=== PATIENT | male | born 1975 | race Native Hawaiian/Other Pacific Islander ===

== ENCOUNTER 2016-05-29 02:37 | Emergency (ER) | payer SELFPAY ==
[~2016-05-29] VITALS: Ht 182.9 cm; Wt 108.9 kg
[~2016-05-29 02:37] MED LIST: AC325T PO; AC500T; AMOX500C2 PO; CLAR-19 PO; CPR500T PO; CYCL10TA9 PO; HYDR-1231 PO; HYDR1CAP2 PO; IBP800T PO; METH4TAB PO
[2016-05-29] MEDS ORDERED: RT-ALBUTEROL/IPRATROPIUM 3 ML (DUONEB) VIAL ONE (02:43)
[2016-05-29] MEDS ORDERED: RT-ALBUTEROL SULF 2.5 MG/3 ML PRE-MIX VIAL INH STA (02:43)
[2016-05-29] MEDS ORDERED: RT-ALBUTEROL SULF 2.5 MG/3 ML PRE-MIX VIAL ONE (02:43)
[2016-05-29] MEDS ORDERED: RT-ALBUTEROL/IPRATROPIUM 3 ML (DUONEB) VIAL INH ONE (02:45)
[2016-05-29] MEDS ORDERED: predniSONE 20 MG TAB PO ONE (02:45)
[2016-05-29] MEDS ORDERED: RX-ALBUTEROL INHALER (PROAIR) 8 GM IH PRN (02:45)
[2016-05-29] MEDS ORDERED: PRD20T PO (03:01)
--- NOTE | 2016-05-29 03:02 | ED Respiratory ---
General Chief Complaint: Respiratory Problems Stated Complaint: SOA Nursing Triage Note: Pt reports SOA and nasal congestion that began yesterday, getting worse this evening. Source: patient Exam Limitations: no limitations History of Present Illness Time seen by provider: 02:41 Initial Comments Here with report of shortness of breath and nasal congestion. Shortness of breath began yesterday morning and got worse this evening and overnight. Noted that the nasal congestion is been going on for a few days. Noted that he felt short of breath and was wheezing tonight and it did not improve. Denies fever or chills. Denies vomiting or diarrhea. Denies chest pain otherwise. Timing/Duration: yesterday, getting worse Severity: moderate Prior Episodes/Possible Cause: no prior episodes Modifying Factors: Improves With Rest Associated Symptoms: cough nasal congestion nasal drainage shortness of breath wheezing Allergies and Home Medications Allergies Coded Allergies: No Known Drug Allergies (Unverified , 03/08/10) Home Medications Acetaminophen 325 Mg Tab 325 MG PO PRN (Reported) Cyclobenzaprine Hcl 10 Mg Tablet #14 1 EACH PO TID PRN PRN SPASMS Prescribed by: SIMEON GIBBONS on 11/17/132057 Hydrocodone Bit/Acetaminophen 1 Tab Tablet #15 1-2 TAB PO Q6H PRN PRN PAIN Prescribed by: SIMEON GIBBONS on 11/17/132057 Methylprednisolone 4 Mg/Dose-Pack Tab.ds.pk #1 1 PKT PO UD Prescribed by: SIMEON GIBBONS on 11/17/132057 Prednisone 20 Mg Tab #10 40 MG PO DAILY Prescribed by: SARTHAK NICOLE on 05/29/16 0301 Constitutional: see HPINo chills, No fever EENTM: see HPI Respiratory: see HPI cough short of breath wheezing Cardiovascular: no symptoms reported Gastrointestinal: no symptoms reported Musculoskeletal: no symptoms reported Skin: no symptoms reported Past Yfwxneg-Jwqayj-Andrhp Hx Patient Social History Alcohol Use: Denies Use Recreational Drug Use: No Smoking Status: Current Everyday Smoker Type Used: Smokeless Tobacco 2nd Hand Smoke Exposure: No Recent Foreign Travel: No Contact w/Someone Who Travel: No Recent Infectious Disease Expo: No Recent Hopitalizations: No Immunizations Up To Date Tetanus Booster (TDap): Unknown Seasonal Allergies Seasonal Allergies: No Surgeries HX Surgeries: No Respiratory Hx Respiratory Disorders: No Cardiovascular Hx Cardiac Disorders: No Neurological Hx Neurological Disorders: No Genitourinary Hx Genitourinary Disorders: No Gastrointestinal Hx Gastrointestinal Disorders: No Musculoskeletal Hx Musculoskeletal Disorders: No Endocrine Hx Endocrine Disorders: No HEENT HX ENT Disorders: No Cancer Hx Cancer: No Psychosocial Hx Psychiatric Problems: No Integumentary HX Skin/Integumentary Disorder: No Blood Transfusions Hx Blood Disorders: No Reviewed Nursing Assessment Reviewed/Agree w Nursing PMH: Yes Family Medical History Significant Family History: No Pertinent Family Hx Physical Exam Vital Signs Vital Sign - Last 12Hours 05/29/16 02:38 Temp 97.9 Pulse 70 Resp 18 B/P 147/79 Pulse Ox 97 O2 Delivery Room Air Capillary Refill : Less Than 3 Seconds General Appearance: WD/WN no apparent distress HEENT: TMs normal other (moderate bilateral nasal congestion with clear rhinorrhea and moderate erythema) Neck: full range of motion supple Respiratory: lungs clear normal breath sounds Cardiovascular: regular rate, rhythm no murmur Gastrointestinal: non tender soft Extremities: non-tender normal inspection Neurologic/Psychiatric: alert oriented x 3 Skin: normal color warm/dry Progress/Results/Core Measures Results/Orders My Orders Orders-SARTHAK NICOLE MD Albuterol Pre-Mix Nebs (Rt) (Proventil P (05/29/16 02:43) Albuterol/Ipra Inhalation Soln (Duoneb I (05/29/16 02:45) Svn Sm Volume Nebulizer Rt-Rfs (05/29/16 02:43) Svn Sm Volume Nebulizer Rt-Rfs (05/29/16 02:43) Rx-Albuterol Inhaler (Rx-Proair) (05/29/16 02:45) Prednisone Tablet (Deltasone Tablet) (05/29/16 02:45) Albuterol Pre-Mix Nebs (Rt) (Proventil P (05/29/16 02:43) Albuterol/Ipra Inhalation Soln (Duoneb I (05/29/16 02:43) Medications Given in ED Current Medications Medications Dose Ordered Sig/Marky Route Start Time Stop Time Status Last Admin Dose Admin Albuterol/ Ipratropium 3 ml ONCE ONCE INH 05/29/16 02:45 05/29/16 02:46 DC 05/29/16 02:48 3 ML Prednisone 40 mg ONCE ONCE PO 05/29/16 02:45 05/29/16 02:46 DC 05/29/16 02:52 40 MG Vital Signs/I&O Vital Sign - Last 12Hours 05/29/16 05/29/16 05/29/16 02:38 02:46 02:48 Temp 97.9 Pulse 70 Resp 18 B/P 147/79 Pulse Ox 97 96 98 O2 Delivery Room Air Blood Pressure Mean: 101 Progress Note : Progress Note Seen and evaluated. His DuoNeb ordered. Albuterol neb ordered. Albuterol MDI go pack given. Prednisone 40 mg by mouth. Discharged home with return precautions. Patient verbalize understanding instructions and agreement with plan. 0310: Overall much better. Discharged home with return precautions. Patient verbalize understanding instructions and agreement with plan. Departure Impression Impression: Primary Impression: Acute bronchitis Qualified Code: J20.9 - Acute bronchitis, unspecified Disposition: HOME, SELF-CARE Condition: Stable Departure-Patient Inst. Decision time for Depature: 03:00 Referrals: [facility] (PCP/Family) Primary Care Physician Patient Instructions: Acute Bronchitis, Adult (DC) Add. Discharge Instructions: All discharge instructions reviewed with patient and/or family. Voiced understanding. Take medications as directed. Follow-up with your Dr. in a few days for recheck. Return for worse pain, fever, vomiting, weakness, breathing problems or other concerns as needed. He may take Tylenol 1000 mg every 8 hours as needed for pain. You may take ibuprofen 800 mg every 8 hours as needed for pain. You may use Afrin nasal spray or the generic, 12 hour relief, 2 sprays to each nostril for 3 days only and then stop. Do not use more than 3 days. Scripts Prednisone 20 Mg Tab40 Mg PO DAILY #10 TAB Prov:SARTHAK NICOLE MD 05/29/16 SARTHAK NICOLE MD May 29, 2016 03:02
[2016-05-29 03:19] VITALS: BP 140/68
== END 2016-05-29 03:19 | disposition home or self-care (01) ==
LOC: EDUNIT# 02:37 → ER 02:40
DX: J20.9 Acute bronchitis, unspecified (principal); F17.210 Nicotine dependence, cigarettes, uncomplicated
CPT/HCPCS: 94640; 99283

== ENCOUNTER 2016-06-21 07:46 | Emergency (ER) | payer SELFPAY ==
[~2016-06-21] VITALS: Ht 182.9 cm; Wt 106.6 kg
[~2016-06-21 07:46] MED LIST changes: +PRD20T PO
[2016-06-21] MEDS ORDERED: ASPIRIN 81 MG CHEW (CHILDREN'S ASA) PO ONE (08:00)
[2016-06-21] MEDS ORDERED: RX-NITROGLYCERIN 0.4 MG TAB BTL 25'S SL ONE (08:00)
[2016-06-21 08:02] LABS: BASOPHILS # (AUTO) 0.1 10^3/uL (0.0-0.1); BASOPHILS % (AUTO) 1 % (0-10); EOSINOPHILS # (AUTO) 0.6 10^3/uL (0.0-0.3); EOSINOPHILS % (AUTO) 6 % (0-10); LYMPHOCYTES # (AUTO) 2.8 X 10^3 (1.0-4.0); LYMPHOCYTES % (AUTO) 26 % (12-44); MEAN CORPUSCULAR HEMOGLOBIN 30 PG (25-34); MEAN CORPUSCULAR HGB CONC 37 G/DL (32-36); MEAN CORPUSCULAR VOLUME 82 FL (80-99); MEAN PLATELET VOLUME 10.3 FL (7.4-10.4); MONOCYTES # (AUTO) 0.7 X 10^3 (0.0-1.0); MONOCYTES % (AUTO) 6 % (0-12); NEUTROPHILS # (AUTO) 6.5 X 10^3 (1.8-7.8); NEUTROPHILS % (AUTO) 61 % (42-75); PLATELET COUNT 303 10^3/uL (130-400); RED BLOOD COUNT 5.75 10^6/uL (4.35-5.85); RED CELL DISTRIBUTION WIDTH 12.8 % (10.0-14.5); WHITE BLOOD COUNT 10.6 10^3/uL (4.3-11.0)
[2016-06-21 08:12] LABS: INR 1.1 (0.8-1.4); PROTHROMBIN TIME PATIENT 14.1 SEC (12.2-14.7)
[2016-06-21] MEDS ORDERED: AMOX500C2 (08:15)
[2016-06-21 08:19] LABS: ALANINE AMINOTRANSFERASE 38 U/L (0-55); ALBUMIN 4.4 G/DL (3.2-4.5); AMYLASE 88 U/L (25-125); ANION GAP 8 MMOL/L (5-14); ASPARTATE AMINO TRANSFERASE 22 U/L (5-34); BILIRUBIN,TOTAL 1.3 MG/DL (0.1-1.0); BLOOD UREA NITROGEN 12 MG/DL (7-18); BUN/CREATININE RATIO 10; CALCIUM 9.4 MG/DL (8.5-10.1); CARBON DIOXIDE 28 MMOL/L (21-32); CHLORIDE 103 MMOL/L (98-107); CREATININE SERUM 1.16 MG/DL (0.60-1.30); GFR ESTIMATED > 60; GLUCOSE 104 MG/DL (70-105); LIPASE 26 U/L (8-78); MAGNESIUM 2.1 MG/DL (1.8-2.4); POTASSIUM 3.5 MMOL/L (3.6-5.0); SODIUM 139 MMOL/L (135-145)
[2016-06-21 08:25] LABS: MYOGLOBIN SERUM 66.8 NG/ML (10.0-92.0)
[2016-06-21] MEDS ORDERED: KETOROLAC 30 MG/ML VIAL IVP STA (08:32)
--- NOTE | 2016-06-21 08:37 | Diagnostic Imaging Report ---
Portable upright radiograph of the chest. INDICATION: Chest pain. FINDINGS: The lungs demonstrate mild interstitial thickening in the bases similar to 11/19/2012 with no adverse development. No focal consolidation. The heart size is normal. No effusion or pneumothorax. The mediastinum and luis appear unremarkable. IMPRESSION: No acute process. Dictated by: Dictated on workstation # [id number]
[2016-06-21 08:40] VITALS: BP 109/77
--- NOTE | 2016-06-21 08:40 | ED Chest Pain ---
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 Reports that it's aching. Denies any recent injury. He has never had anything like this before. Denies nausea, vomiting or diaphoresis. Timing/Duration: 1/2 hour Severity/Quality: moderate Location: shoulder, other (left upper chest) Radiation: shoulders (left) Activities at Onset: none Prior CP/Workup: no prior chest pain ASA po SADDLE MECHANIC: No NTG SL SADDLE MECHANIC: No Associated Symptoms: No abdominal pain, No diaphoresis, No fever/chills, No nausea/vomiting, No shortness of breath, No weakness Allergies and Home Medications Allergies Coded Allergies: No Known Drug Allergies (Unverified , 03/08/10) Home Medications Amoxicillin 500 Mg Capsule, #21 (Reported) Review of Systems Constitutional: see HPI, No chills, No fever EENTM: No Symptoms Reported Respiratory: No Symptoms Reported Cardiovascular: See HPI Gastrointestinal: No Symptoms Reported, See HPI Genitourinary: No Symptoms Reported Musculoskeletal: see HPI, joint pain, muscle pain Skin: no symptoms reported All Other Systems Reviewed Negative Unless Noted: Yes Past Gdqfpmw-Yvkwwo-Tvdqkh Hx Patient Social History Alcohol Use: Denies Use Recreational Drug Use: No Type Used: Smokeless Tobacco 2nd Hand Smoke Exposure: No Recent Foreign Travel: No Contact w/Someone Who Travel: No Recent Infectious Disease Expo: No Recent Hopitalizations: No Immunizations Up To Date Tetanus Booster (TDap): Unknown Seasonal Allergies Seasonal Allergies: No Surgeries HX Surgeries: No Respiratory Hx Respiratory Disorders: No Cardiovascular Hx Cardiac Disorders: No Neurological Hx Neurological Disorders: No Genitourinary Hx Genitourinary Disorders: No Gastrointestinal Hx Gastrointestinal Disorders: No Musculoskeletal Hx Musculoskeletal Disorders: No Endocrine Hx Endocrine Disorders: No HEENT HX ENT Disorders: No Cancer Hx Cancer: No Psychosocial Hx Psychiatric Problems: No Integumentary HX Skin/Integumentary Disorder: No Blood Transfusions Hx Blood Disorders: No Reviewed Nursing Assessment Reviewed/Agree w Nursing PMH: Yes Family Medical History Significant Family History: No Pertinent Family Hx Physical Exam Vital Signs Vital Sign - Last 12Hours 06/21/16 06/21/16 07:46 08:17 Temp 97.8 Pulse 64 Resp 18 B/P (MAP) 124/71 Pulse Ox 95 O2 Delivery Room Air O2 Flow Rate 2.00 Capillary Refill : Less Than 3 Seconds General Appearance: No Apparent Distress, WD/WN HEENT: PERRL/EOMI, Pharynx Normal Neck: Non Tender, Supple Respiratory: Lungs Clear, Normal Breath Sounds Cardiovascular: Regular Rate, Rhythm, No Murmur Gastrointestinal: Non Tender, Soft Extremity: Normal Range of Motion, Non Tender, No Calf Tenderness Neurologic/Psychiatric: Alert, Oriented x3 Skin: Normal Color, Warm/Dry Progress/Results/Core Measures Results/Orders Lab Results Laboratory Tests Test 06/21/16 07:50 06/21/16 09:58 Range/Units White Blood Count 10.6 4.3-11.0 10^3/uL Red Blood Count 5.75 4.35-5.85 10^6/uL Hemoglobin 17.3 13.3-17.7 G/DL Hematocrit 47 40-54 % Mean Corpuscular Volume 82 80-99 FL Mean Corpuscular Hemoglobin 30 25-34 PG Mean Corpuscular Hemoglobin Concent 37 H 32-36 G/DL Red Cell Distribution Width 12.8 10.0-14.5 % Platelet Count 303 130-400 10^3/uL Mean Platelet Volume 10.3 7.4-10.4 FL Neutrophils (%) (Auto) 61 42-75 % Lymphocytes (%) (Auto) 26 12-44 % Monocytes (%) (Auto) 6 0-12 % Eosinophils (%) (Auto) 6 0-10 % Basophils (%) (Auto) 1 0-10 % Neutrophils # (Auto) 6.5 1.8-7.8 X 10^3 Lymphocytes # (Auto) 2.8 1.0-4.0 X 10^3 Monocytes # (Auto) 0.7 0.0-1.0 X 10^3 Eosinophils # (Auto) 0.6 H 0.0-0.3 10^3/uL Basophils # (Auto) 0.1 0.0-0.1 10^3/uL Prothrombin Time 14.1 12.2-14.7 SEC INR Comment 1.1 0.8-1.4 Activated Partial Thromboplast Time 28 24-35 SEC D-Dimer < 0.27 0.00-0.49 UG/ML Sodium Level 139 135-145 MMOL/L Potassium Level 3.5 L 3.6-5.0 MMOL/L Chloride Level 103 98-107 MMOL/L Carbon Dioxide Level 28 21-32 MMOL/L Anion Gap 8 5-14 MMOL/L Blood Urea Nitrogen 12 7-18 MG/DL Creatinine 1.16 0.60-1.30 MG/DL Estimat Glomerular Filtration Rate > 60 BUN/Creatinine Ratio 10 Glucose Level 104 70-105 MG/DL Calcium Level 9.4 8.5-10.1 MG/DL Magnesium Level 2.1 1.8-2.4 MG/DL Total Bilirubin 1.3 H 0.1-1.0 MG/DL Aspartate Amino Transf (AST/SGOT) 22 5-34 U/L Alanine Aminotransferase (ALT/SGPT) 38 0-55 U/L Alkaline Phosphatase 107 40-136 U/L Myoglobin 66.8 10.0-92.0 NG/ML Troponin I < 0.30 < 0.30 <0.30 NG/ML Total Protein 8.0 6.4-8.2 G/DL Albumin 4.4 3.2-4.5 G/DL Amylase Level 88 25-125 U/L Lipase 26 8-78 U/L My Orders Orders - SARTHAK NICOLE MD Cbc With Automated Diff (06/21/16 07:54) Magnesium (06/21/16 07:54) Chest 1 View, Ap/Pa Only (06/21/16 07:54) Ekg Tracing (06/21/16 07:54) Cardiac Profile 1 (06/21/16 07:54) Comprehensive Metabolic Panel (06/21/16 07:54) Myoglobin Serum (06/21/16 07:54) Protime With Inr (06/21/16 07:54) Partial Thromboplastin Time (06/21/16 07:54) O2 (06/21/16 07:54) Monitor-Rhythm Ecg Trace Only (06/21/16 07:54) Lipid Panel (06/22/16 06:00) Aspirin Chewable Tablet (Baby Aspirin Ch (06/21/16 08:00) Rx-Nitroglycerin Sl Tabs (Rx-Nitrostat S (06/21/16 08:00) Saline Lock/Iv-Start (06/21/16 07:54) Lipase (06/21/16 07:54) Amylase (06/21/16 07:54) Fibrin Degradation Products (06/21/16 07:54) Ketorolac Injection (Toradol Injection) (06/21/16 08:32) Troponin I (06/21/16 09:54) Ekg Tracing (06/21/16 09:54) Medications Given in ED Current Medications Medications Dose Ordered Sig/Marky Route Start Time Stop Time Status Last Admin Dose Admin Aspirin 324 mg ONCE ONCE PO 06/21/16 08:00 06/21/16 08:01 DC 06/21/16 08:00 324 MG Nitroglycerin 0.4 mg UD ONCE SL 06/21/16 08:00 06/21/16 08:01 DC 06/21/16 08:00 0.4 MG Vital Signs/I&O Vital Sign - Last 12Hours 06/21/16 06/21/16 06/21/16 06/21/16 07:46 08:17 08:40 09:37 Temp 97.8 Pulse 64 59 48 Resp 18 18 18 B/P (MAP) 124/71 109/77 122/97 Pulse Ox 95 99 99 O2 Delivery Room Air Nasal Cannula Nasal Cannula Nasal Cannula O2 Flow Rate 2.00 2.00 2.00 Blood Pressure Mean: 88 Progress Note : Progress Note Seen and evaluated. IV, labs, EKG and chest x-ray ordered. ASA 324 mg by mouth. Nitroglycerin sublingual ordered. He was given 1 dose of nitroglycerin and this did resolve pain mostly. Toradol 30 mg IV ordered. 0835: No acute findings on initial set of labs. Toradol 30 mg IV. We will repeat labs and EKG at 2 hour armida. Monitor patient. 1045: Troponin negative. Patient remains pain free. I did discuss the case with Dr. Gonzales. She will assist in follow-up at the clinic for further evaluation and stress test as indicated. This was discussed with the patient as well. Discharged home with return precautions. Patient verbalize understanding instructions and agreement with plan. ECG Initial ECG Impression Date: Jun 21, 2016 Initial ECG Impression Time: 07:52 Initial ECG Rate: 64 Initial ECG Rhythm: Normal Sinus Initial ECG Impression: Normal Initial ECG Comparisson: No Previous ECG Available Comment Sinus rhythm with normal axis. No evidence of ST elevation ND. No previous available for comparison. Interpreted by me. EKG : EKG Time: 09:58 Rate: 49 Rhythm: S.Silas Comment Sinus bradycardia with normal axis. No evidence of ST elevation ND. Similar to previous done earlier today except rate is slower now. Interpreted by me. Diagnostic Imaging Diagonstic Imaging: Xray Plain Films/CT/US/NM/MRI: chest Comments [facility]. [place], [place] NAME: TAMRA FAIRBANKS [facility] REC#: [id number] PT STATUS: REG ER : 1975 PHYSICIAN: SARTHAK NICOLE MD ADMIT DATE: 06/21/16/ER Draft Date of Exam:06/21/16 CHEST 1 VIEW, AP/PA ONLY Portable upright radiograph of the chest. INDICATION: Chest pain. FINDINGS: The lungs demonstrate mild interstitial thickening in the bases similar to 11/19/2012 with no adverse development. No focal consolidation. The heart size is normal. No effusion or pneumothorax. The mediastinum and luis appear unremarkable. IMPRESSION: No acute process. Dictated on workstation # [id number] Dict: 06/21/16 0826 Trans: 06/21/16 0836 [id number] Interpreted by: EKTA BRUNO MD Electronically signed by: Reviewed: Reviewed by Me Departure Impression Impression: Primary Impression: Chest pain Qualified Codes: R07.89 - Other chest pain Disposition: 01 HOME, SELF-CARE Condition: Improved Departure-Patient Inst. Decision time for Depature: 10:48 Referrals: [facility] (PCP/Family) Primary Care Physician Patient Instructions: Chest Pain (DC) Add. Discharge Instructions: All discharge instructions reviewed with patient and/or family. Voiced understanding. follow-up with your DrAmanda at the clinic within one week for recheck and further evaluation. They should call you for appointment time today but if you have not heard from them call them this evening or first thing in the morning for appointment. Let them know the case was discussed with Dr. Gonzales who is assisting with scheduling your appointment. You need further evaluation including a possible cardiac stress test as indicated and you should talk with your doctor about this. Return for worse pain, fever, vomiting, weakness, breathing problems or other concerns as needed. Drink plenty of fluids. Copy Copies To 1: LEE GONZALES MD, TIMOTHY D MD Jun 21, 2016 08:40
[2016-06-21 09:37] VITALS: BP 122/97
--- OUTSIDE RECORDS SUMMARY | 2016-07-16 04:07 | XMS REPORT ---
Author Author HUGO MUSTAFA Organization [facility] Address [address] [place] [address] Care Team Providers Care Gta Name Role Phone HUGO MUSTAFA Unavailable PROBLEMS Type Condition ICD9-CM Code IFB43-GB Code Onset Dates Condition Status SNOMED Code Assessment Cough R05 Nov, Active 73729091 Assessment Abnormal lung sounds R09.89 Nov, Active 88172531312053 Assessment Acute bronchitis, unspecified organism J20.9 Nov, Active [id number] ALLERGIES Substance Reaction Event Type Date Status N.K.D.A. Unknown Non Drug Allergy Nov, Unknown SOCIAL HISTORY No smoking Hx information available PLAN OF CARE VITAL SIGNS Weight 228.4 lbs 2015-12-20 Heart Rate 76 bpm 2015-12-20 Respiratory Rate 20 2015-12-20 Oximetry on room air:94 % 2015-12-20 Blood pressure systolic 122 mmHg 2015-12-20 Blood pressure diastolic 78 mmHg 2015-12-20 MEDICATIONS Medication Instructions Dosage Frequency Start Date End Date Duration Status ProAir HFA 108 (90 Base) MCG/ACT Inhalation every 4 hrs 2 puffs as needed 4h Nov, Active PredniSONE 20 mg Orally Once a day 1 tablet 24h Nov, Dec, 05 days Active Azithromycin 250 MG Orally Once a day 2 tablets on the first day, then 1 tablet daily for 4 days 24h Nov, Dec, 5 day(s) Active RESULTS Name Result Date Reference Range Xray : Chest (IN HOUSE) 2015-12-20 PROCEDURES Procedure Date Ordered Related Diagnosis Body Site CHEST X-RAY Dec 20, 2015 MEASURE BLOOD OXYGEN LEVEL Dec 20, 2015 Office Visit, Est Pt., Level 3 Dec 20, 2015 IMMUNIZATIONS No Known Immunizations
--- OUTSIDE RECORDS SUMMARY | 2016-07-16 04:07 | XMS REPORT | Continuity of Care Document ---
Author Author [facility] Organization [facility] Address Unknown Phone Unavailable Allergies Active Description Code Type Severity Reaction Onset Reported/Identified Relationship to Patient Clinical Status Yes No Known Drug Allergies [id number] Drug Allergy Unknown N/ A 03/08/2010 Medications Problems Date Dx Coded Attending Type Code Diagnosis Diagnosed By 11/19/2012 SARTHAK NICOLE MD, Ot 486 PNEUMONIA, ORGANISM NOS 11/19/2012 SARTHAK NICOLE MD Ot 780.60 FEVER, UNSPECIFIED 07/18/2013 NAVA STEWARD DO Ot 372.30 CONJUNCTIVITIS NOS 07/18/2013 NAVA STEWARD DO Ot 379.93 REDNESS/DISCHARGE OF EYE 11/17/2013 SHAI WISE, SIMEON Garner Ot 724.2 LUMBAGO 06/21/2016 SARTHAK NICOLE MD Ot F17.210 NICOTINE DEPENDENCE, CIGARETTES, UNCOMPL 06/21/2016 SARTHAK NICOLE MD Ot J20.9 ACUTE BRONCHITIS, UNSPECIFIED 06/21/2016 SARTHAK NICOLE MD Ot R06.02 SHORTNESS OF BREATH 06/22/2016 SARTHAK NICOLE MD Ot R07.9 CHEST PAIN, UNSPECIFIED 06/22/2016 SARTHAK NICOLE MD Ot R29.898 OT SYMPTOMS AND SIGNS INVOLVING THE MUS 06/25/2016 SARTHAK NICOLE MD Ot R07.9 CHEST PAIN, UNSPECIFIED 06/25/2016 SARTHAK NICOLE MD Ot R29.898 OT SYMPTOMS AND SIGNS INVOLVING THE MUS Procedures Results Test Result Range Complete blood count (CBC) with automated white blood cell (WBC) differential - 06/21/16 07:50 Blood leukocytes automated count (number/volume) 10.6 10*3/ uL 4.3-11.0 Blood erythrocytes automated count (number/volume) 5.75 10*6 /uL 4.35-5.85 Venous blood hemoglobin measurement (mass/volume) 17.3 g/dL 13.3-17.7 Blood hematocrit (volume fraction) 47 % 40-54 Automated erythrocyte mean corpuscular volume 82 [foz_us] 80-99 Automated erythrocyte mean corpuscular hemoglobin (mass per erythrocyte) 30 pg 25-34 Automated erythrocyte mean corpuscular hemoglobin concentration measurement ( mass/volume) 37 g/dL 32-36 Automated erythrocyte distribution width ratio 12.8 % 10.0-14.5 Automated blood platelet count (count/volume) 303 10*3/uL 130-400 Automated blood platelet mean volume measurement 10.3 [foz_ us] 7.4-10.4 Automated blood neutrophils/100 leukocytes 61 % 42-75 Automated blood lymphocytes/100 leukocytes 26 % 12-44 Blood monocytes/100 leukocytes 6 % 0-12 Automated blood eosinophils/100 leukocytes 6 % 0-10 Automated blood basophils/100 leukocytes 1 % 0-10 Blood neutrophils automated count (number/volume) 6.5 10*3 1.8-7.8 Blood lymphocytes automated count (number/volume) 2.8 10*3 1.0-4.0 Blood monocytes automated count (number/volume) 0.7 10*3 0.0-1.0 Automated eosinophil count 0.6 10*3/uL 0.0-0.3 Automated blood basophil count (count/volume) 0.1 10*3/uL 0.0-0.1 PT panel in platelet poor plasma by coagulation assay - 06/21/16 07:50 Prothrombin time (PT) in platelet poor plasma by coagulation assay 14.1 s 12.2-14.7 INR in platelet poor plasma or blood by coagulation assay 1.1 0.8-1.4 Activated partial thromboplastin time (aPTT) in platelet poor plasma bycoagulation assay - 06/21/16 07:50 Activated partial thromboplastin time (aPTT) in platelet poor plasma bycoagulation assay 28 s 24-35 Fibrin D-dimer FEU measurement in platelet poor plasma (mass/volume) - 07:50 Fibrin D-dimer FEU measurement in platelet poor plasma (mass/volume) < ug/mL 0.00-0.49 Comprehensive metabolic panel - 06/21/16 07:50 Serum or plasma sodium measurement (moles/volume) 139 mmol/ L 135-145 Serum or plasma potassium measurement (moles/volume) 3.5 mmol/L 3.6-5.0 Serum or plasma chloride measurement (moles/volume) 103 mmol /L 98-107 Carbon dioxide 28 mmol/L 21-32 Serum or plasma anion gap determination (moles/volume) 8 mmol/L 5-14 Serum or plasma urea nitrogen measurement (mass/volume) 12 mg/dL 7-18 Serum or plasma creatinine measurement (mass/volume) 1.16 mg /dL 0.60-1.30 Serum or plasma urea nitrogen/creatinine mass ratio 10 NRG Serum or plasma creatinine measurement with calculation of estimated glomerular filtration rate > NRG Serum or plasma glucose measurement (mass/volume) 104 mg/dL 70-105 Serum or plasma calcium measurement (mass/volume) 9.4 mg/dL 8.5-10.1 Serum or plasma total bilirubin measurement (mass/volume) 1.3 mg/dL 0.1-1.0 Serum or plasma alkaline phosphatase measurement (enzymatic activity/volume) 107 U/L 40-136 Serum or plasma aspartate aminotransferase measurement (enzymatic activity/ volume) 22 U/L 5-34 Serum or plasma alanine aminotransferase measurement (enzymatic activity/volume ) 38 U/L 0-55 Serum or plasma protein measurement (mass/volume) 8.0 g/dL 6.4-8.2 Serum or plasma albumin measurement (mass/volume) 4.4 g/dL 3.2-4.5 Magnesium - 06/21/16 07:50 Magnesium 2.1 mg/dL 1.8-2.4 Serum or plasma troponin i.cardiac measurement (mass/volume) - 06/21/16 07:50 Serum or plasma troponin i.cardiac measurement (mass/volume) < ng/mL <0.30 Myoglobin, serum - 06/21/16 07:50 Myoglobin, serum 66.8 ng/mL 10.0-92.0 Serum or plasma amylase measurement (enzymatic activity/volume) - 06/21/16 07: 50 Serum or plasma amylase measurement (enzymatic activity/volume) 88 U/L 25-125 Lipase - 06/21/16 07:50 Lipase 26 U/L 8-78 Serum or plasma troponin i.cardiac measurement (mass/volume) - 06/21/16 09:58 Serum or plasma troponin i.cardiac measurement (mass/volume) < ng/mL <0.30 Encounters ACCT No. Visit Date/Time Discharge Status Pt. Type Provider Facility Loc./Unit Complaint [id number] 06/21/2016 07:49:00 2016 11:02:00 DIS Outpatient SARTHAK NICOLE MD [facility] ER CHEST PAIN/LEFT ARM WEAKNESS [id number] 05/29/2016 02:40:00 2016 03:19:00 DIS Emergency SARTHAK NICOLE MD [facility] ER SOA [id number] 11/17/2013 20:32:00 2013 21:30:00 DIS Emergency SIMEON GIBBONS MD [facility] ER LOWER BACK PAIN [id number] 07/18/2013 20:48:00 2013 21:33:00 DIS Emergency NAVA STEWARD DO [facility] ER EYE IRRITATION [id number] 11/19/2012 15:08:00 2012 18:50:00 DIS Emergency SARTHAK NICOLE MD [facility] ER FEVER
== END 2016-06-21 11:02 | disposition home or self-care (01) ==
LOC: EDUNIT# 07:46 → ER 07:49
DX: R07.9 Chest pain, unspecified (principal); R29.898 Other symptoms and signs involving the musculoskeletal system
CPT/HCPCS: 36415; 71010; 80053; 82150; 83690; 83735; 83874; 84484; 85025; 85379; 85610; 85730; 93005; 93041; 96374

== ENCOUNTER 2021-07-29 17:18 | Emergency (ER) | payer OTHER ==
[~2021-07-29] VITALS: Ht 167 cm; Wt 95.0 kg
[~2021-07-29 17:18] MED LIST changes: +AMOX500C2
--- NOTE | 2021-07-29 18:21 | ED Back Pain ---
General Chief Complaint: Back Problems Stated Complaint: LOWER BACK PAIN Source of Information: Patient Exam Limitations: No Limitations History of Present Illness Date Seen by Provider: July 29, 2021 Time Seen by Provider: 18:20 Initial Comments To ER with c/o low back pain which is a chronic issue but acutely worse today after sneezing while on the couch. no fever or chills, no known injury, no radiation down either leg, no loss of bowel or bladder control. Has been taking tylenol at home for pain control Pain is worsened by position change and improved with massage. Location: Lumbar Spine, Paraspinous Muscles Timing/Duration: 1-2 Days, Getting Worse Severity: Moderate Method of Injury: Unknown Associated Symptoms: lower back pain Allergies and Home Medications Allergies Coded Allergies: No Known Drug Allergies (Unverified , 03/08/10) Patient Home Medication List Home Medication List Reviewed: Yes Amoxicillin (Amoxicillin) 500 Mg Capsule, (Reported) Entered as Reported by: GABRIELA SUAREZ on 06/21/16 0815 Review of Systems Constitutional: see HPI EENTM: see HPI Respiratory: no symptoms reported Cardiovascular: no symptoms reported Genitourinary: no symptoms reported Musculoskeletal: see HPI, back pain Skin: no symptoms reported Psychiatric/Neurological: No Symptoms Reported Past Gjdyulv-Mhapym-Iaalde Hx Patient Social History Tobacco Use?: No Use of E-Cig and/or Vaping dev: No Substance use?: No Immunizations Up To Date Tetanus Booster (TDap): Unknown Influenza Vaccine Up-to-Date: Yes; Up-to-Date First/Initial COVID19 Vaccinat: YES Second COVID19 Vaccination Benton: YES Seasonal Allergies Seasonal Allergies: No Family Medical History No Pertinent Family Hx Physical Exam Vital Signs Capillary Refill : Height, Weight, BMI Height: 6'0" Weight: 235lbs. oz. 106.717870sp; BMI Method:Stated General Appearance: No Apparent Distress, WD/WN Neck: Full Range of Motion, Normal Inspection Respiratory: No Accessory Muscle Use, No Respiratory Distress Gastrointestinal: Non Tender, Soft Back: Other (Right flank wnl appearing. at bedside massaging it. ) Extremity: Normal Capillary Refill, Normal Inspection Neurologic/Psychiatric: Alert, Oriented x3 Skin: Normal Color, Warm/Dry Progress/Results/Core Measures Results/Orders My Orders Orders - VEL HUBER APRN Ketorolac Injection (Toradol Injection) (07/29/21 18:30) Orphenadrine Inj (Ed Only) (Norflex Inje (07/29/21 18:30) Hydrocodone/Apap 5/325 Tablet (Lortab 5 (07/29/21 18:30) Departure Impression Primary Impression: Acute low back pain Disposition: HOME, SELF-CARE Condition: Stable Departure-Patient Inst. Decision time for Depature: 18:30 Referrals: [facility] Primary Care Physician Patient Instructions: Low Back Pain in Adults Add. Discharge Instructions: 1. Return to ER for any concerns 2. follow up with Primary Care next week All discharge instructions reviewed with patient and/or family. Voiced understanding. VEL HUBER [employer] July 29, 2021 18:20
[2021-07-29] MEDS ORDERED: HYDROcodone/APAP 5 MG/325 MG (LORTAB) TAB PO ONE (18:30)
[2021-07-29] MEDS ORDERED: KETOROLAC 60 MG/2 ML VIAL IM ONE (18:30)
[2021-07-29] MEDS ORDERED: ORPHENADRINE 60 MG/2 ML (NORFLEX) AMP (ED ONLY) IM ONE (18:30)
[2021-07-29 19:07] VITALS: BP 110/83
== END 2021-07-29 19:10 | disposition home or self-care (01) ==
LOC: EDUNIT# 17:18 → ER 17:21
DX: M54.50 Low back pain, unspecified (principal); X58.XXXA Exposure to other specified factors, initial encounter
CPT/HCPCS: 99284

== ENCOUNTER 2021-08-03 08:23 | Emergency (ER) | payer OTHER ==
[~2021-08-03] VITALS: Ht 182 cm; Wt 109.0 kg
[2021-08-03] MEDS ORDERED: ORPHENADRINE 60 MG/2 ML (NORFLEX) AMP (ED ONLY) INJ STA (08:50)
[2021-08-03] MEDS ORDERED: methylPREDNISolone 125 MG (Solu-MEDROL) VIAL IV STA (08:50)
--- NOTE | 2021-08-03 09:12 | ED Back Pain ---
General Chief Complaint: Back Problems Stated Complaint: LOWER BACK PAIN Nursing Triage Note: PT AMB SLOWLY TO RM 7, STATES WAS SEEN IN ED LAST WEEK, STATES SNEEZED AND HAD SEVERE BACK PAIN GOES TO R LOWER BACK, PT STATES IS NOT ANY BETTER TODAY, 01/02. Source of Information: Patient History of Present Illness Date Seen by Provider: August 03, 2021 Time Seen by Provider: 08:42 Initial Comments PT ARRIVES VIA POV FROM HOME C/O LOWER BACK PAIN SINCE Sunday07/29/21 PT STATES HE WAS SITTING ON THE COUCH AND SNEEZED AND HAD SEVERE PAIN IN LOWER BACK PAIN IS ALSO IN RIGHT LOWER BACK NO RADIATION OF PAIN INTO BUTTOCKS OR DOWN LEG NO PARESTHESIAS OR MOTOR DEFICITS NO LOSS OF BOWEL OR BLADDER FUNCTION OR ANY URINARY SYMPTOMS NO FEVER NO GI SYMPTOMS ON 07/29/21, HE WAS GIVEN SHOTS OF TORADOL AND NORFLEX, AND PT WAS GIVEN RX'S FOR HYDROCODONE AND METHOCARBAMOL--STATES HE HAS RAN OUT PT WAS SEEN AT [facility] ON Sunday07/31/21 FOR SAME, HAD XRAYS DONE AND GIVEN RX'S FOR FLEXERIL AND MELOXICAM. PT STATES THEY ARE NOT HELPING HAS HISTORY OF CHRONIC BACK PAIN--COMES AND GOES, BUT STATES IT HAS NEVER BEEN THIS BAD BEFORE STATES HE DOES NOT TAKE ANY DAILY MEDICATION FOR HIS BACK, PRIOR TO THIS CURRENT PROBLEM Other Comments PCP: [facility] Allergies and Home Medications Allergies Coded Allergies: No Known Drug Allergies (Unverified , 03/08/10) Patient Home Medication List Home Medication List Reviewed: Yes Amoxicillin (Amoxicillin) 500 Mg Capsule, (Reported) Entered as Reported by: GABRIELA SUAREZ on 06/21/16 0815 Tramadol HCl (Ultram) 50 Mg Tablet, 50 MG PO Q4H Prescribed by: NAVA STEWARD on 08/03/21 0942 Review of Systems Constitutional: no symptoms reported Respiratory: no symptoms reported Cardiovascular: no symptoms reported Gastrointestinal: no symptoms reported Genitourinary: no symptoms reported Musculoskeletal: see HPI, back pain Skin: no symptoms reported; No rash Psychiatric/Neurological: No Symptoms Reported Past Wtiuxrv-Wptnbt-Nujgik Hx Patient Social History Tobacco Use?: No Smoking Status: Never a Smoker Use of E-Cig and/or Vaping Atul: Never a User Substance use?: No Alcohol Use?: No Immunizations Up To Date Tetanus Booster (TDap): Unknown First/Initial COVID19 Vaccinat: YES Second COVID19 Vaccination Benton: YES Third COVID19 Vaccination Date: YES Seasonal Allergies Seasonal Allergies: No Past Medical History Surgery/Hospitalization HX: NONE Surgeries: No Respiratory: No Cardiac: No Neurological: No Genitourinary: No Gastrointestinal: No Musculoskeletal: Yes Chronic Back Pain HEENT: No Cancer: No Psychosocial: No Integumentary: No Blood Disorders: No Family Medical History No Pertinent Family Hx Physical Exam Vital Signs Vital Signs - First Documented 08/03/21 08:34 Pulse 67 Resp 20 B/P (MAP) 172/101 (124) Pulse Ox 98 Capillary Refill : Less Than 3 Seconds Height, Weight, BMI Height: 6'0" Weight: 235lbs. oz. 106.173852xf; 32.00 BMI Method:Stated General Appearance: No Apparent Distress, WD/WN, Other (SPEECH PATTERN DIFFICULT TO UNDERSTAND) Neck: Normal Inspection Cardiovascular: Regular Rate, Rhythm, No Murmur, Normal Peripheral Pulses Respiratory: Normal Breath Sounds Peripheral Pulses: 2+ Dorsalis Pedis (R), 2+ Left Dors-Pedis (L) Gastrointestinal: Non Tender, Soft Back: Decreased Range of Motion (IN ALL DIRECTIONS), Other (DIFFUSE LOWER BACK TENDERNESS, AND RIGHT SI AREA TENDERNESS. NEGATIVE STRAIGHT LEG RAISING BILATERALLY. DTR'S 2/4 BILATERALLY) Extremity: Normal Capillary Refill, Normal Inspection, Normal Range of Motion, Non Tender, No Calf Tenderness, No Pedal Edema Neurologic/Psychiatric: Alert, Oriented x3, No Motor/Sensory Deficits, Normal Mood/Affect, needle control cheniller II-XII Norm as Tested Skin: Normal Color, Warm/Dry; No Rash Progress/Results/Core Measures Results/Orders My Orders Orders - NAVA STEWARD DO Ed Iv/Invasive Line Start (08/03/21 08:50) Ct Lumbar Spine Wo (08/03/21 08:50) Orphenadrine Inj (Ed Only) (Norflex Inje (08/03/21 08:50) Methylprednisolone Sod Succ (Solu-Medrol (08/03/21 08:50) Vital Signs/I&O 08/03/21 08/03/21 08:34 09:52 Pulse 67 60 Resp 20 18 B/P (MAP) 172/101 (124) 161/95 Pulse Ox 98 98 Blood Pressure Mean: 124 Progress Progress Note : Progress Note GIVEN SOLUMEDROL AND NORFLEX WITH SOME RELIEF OF PAIN Diagnostic Imaging Comments CT LUMBAR SPINE--PER RADIOLOGIST REPORT AT 0939 Lumbar statures are normal, the alignment anatomic. The pedicles and pars intact. No acute or chronic fracture. No suspicious endplate irregularity. No paravertebral mass, hemorrhage or fluid collection. Sacrum and SI joints nonacute. Partially visualized kidneys unobstructed. The visualized aorta nonaneurysmal. Degenerative disease at L3-L4 results in mild spinal canal stenosis with mild right and oxcw-wr-njboregc left foraminal narrowing. At L4-L5, there is mexd-bj-vbrraiip canal stenosis with mild bi-foraminal narrowing. At L5-S1, osteophyte disc material indents the ventral thecal sac. There is wseg-la-gfpqnafu canal stenosis with moderate right and iqlipved-kc-pbzfbv left foraminal narrowing. IMPRESSION: Degenerative disease with multilevel mid to lower lumbar canal and foraminal stenoses, however, no fracture, malalignment or acute appearing abnormalities Reviewed: Reviewed by Me Departure Impression Primary Impression: Degenerative disc disease, lumbar Disposition: 01 HOME, SELF-CARE Condition: Stable Departure-Patient Inst. Decision time for Depature: 09:40 Referrals: [facility] (PCP/Family) Primary Care Physician Patient Instructions: Degenerative Disc Disease (DC) Add. Discharge Instructions: ALTERNATE ICE AND HEAT TO SORE AREA AT 20 MINUTE INTERVALS. FOLLOW UP WITH [facility] IN 1-2 DAYS FOR FURTHER CARE CONTINUE MELOXICAM AND CYCLOBENZAPRINE PRESCRIBED All discharge instructions reviewed with patient and/or family. Voiced unde rstanding. Scripts Tramadol HCl (Ultram) 50 Mg Tablet 50 MG PO Q4H for Pain, #20 TAB Prov: NAVA STEWARD DO 08/03/21 NAVA STEWARD DO August 03, 2021 09:12
--- NOTE | 2021-08-03 09:28 | Diagnostic Imaging Report ---
PROCEDURE: CT lumbar spine without contrast. TECHNIQUE: Multiple contiguous axial images were obtained through the lumbar spine without the use of intravenous contrast. Sagittal and coronal reformations were then performed. Auto Exposure Controls were utilized during the CT exam to meet ALARA standards for radiation dose reduction. INDICATION: Back pain. Lumbar statures are normal, the alignment anatomic. The pedicles and pars intact. No acute or chronic fracture. No suspicious endplate irregularity. No paravertebral mass, hemorrhage or fluid collection. Sacrum and SI joints nonacute. Partially visualized kidneys unobstructed. The visualized aorta nonaneurysmal. Degenerative disease at L3-L4 results in mild spinal canal stenosis with mild right and feky-ho-pcfdvqra left foraminal narrowing. At L4-L5, there is yyws-gw-oyvocahf canal stenosis with mild bi-foraminal narrowing. At L5-S1, osteophyte disc material indents the ventral thecal sac. There is gzxd-xw-xfelesdi canal stenosis with moderate right and duqlfgjn-mb-xjrwnn left foraminal narrowing. IMPRESSION: Degenerative disease with multilevel mid to lower lumbar canal and foraminal stenoses, however, no fracture, malalignment or acute appearing abnormalities Dictated by: Dictated on workstation # [id number]
[2021-08-03] MEDS ORDERED: TRAM-42 PO (09:41)
[2021-08-03 09:52] VITALS: BP 161/95
== END 2021-08-03 09:53 | disposition home or self-care (01) ==
LOC: EDUNIT# 08:23 → ER 08:25
DX: M51.36 Other intervertebral disc degeneration, lumbar region (principal)
CPT/HCPCS: 72131; 96374; 96375

== ENCOUNTER 2022-01-27 09:57 | Emergency (ER) | payer OTHER ==
[~2022-01-27] VITALS: Ht 182.9 cm; Wt 106.6 kg
[~2022-01-27 09:57] MED LIST changes: +TRAM-42 PO
--- NOTE | 2022-01-27 10:47 | ED Cough/URI ---
General Chief Complaint: Cough/Cold/Flu Symptoms Stated Complaint: COUGHING AND CONGESTION Nursing Triage Note: PT AMBULATE TO ROOM 10 WITHOUT DIFFICULTY WITH C/O COUGH AND CONGESTION X2 DAYS. PT STATES HE HAS NOT SOUGHT CARE FOR THIS C/O. PT STATES HE HAS NOT TAKEN ANY MEDICATION FOR THIS C/O. Source: patient Exam Limitations: no limitations History of Present Illness Date Seen by Provider: Jan 27, 2022 Time Seen by Provider: 10:42 Initial Comments Patient is a 46-year-old male who presents to the emergency department today with a chief complaint of headache, right-sided earache, congestion, shortness of breath cough productive of yellow sputum, diarrhea. He is also complaining of a little musculoskeletal chest wall pain with cough. He states symptom onset 3 days ago. 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 He states that he is COVID vaccinated but no boosters. States that he is a former smoker. Uses Symbicort at home for when he feels short of breath. Does not routinely use inhalers. Appetite has been good. No black or bloody stools. Normal urination. Took Tylenol last night without much relief of symptoms. Not using any qgix-rwf-depemhz cold or cough medications. Timing/Duration: other (3 days) Severity/Quality: moderate, sputum (yellow) Modifying Factors: Improves With Other (symbicort inhaler) Associated Symptoms: cough, earache (right), headache, nasal congestion, nasal drainage, shortness of breath, wheezing Allergies and Home Medications Allergies Coded Allergies: No Known Drug Allergies (Unverified , 03/08/10) Patient Home Medication List Home Medication List Reviewed: Yes Albuterol Sulfate (Ventolin Hfa) 90 Mcg Hfa.aer.ad, 2 PUFF INH Q6H PRN for SHORTNESS OF BREATH Prescribed by: RAJ LUCERO on 01/27/22 1246 Amoxicillin (Amoxicillin) 500 Mg Capsule, (Reported) Entered as Reported by: GABRIELA SUAREZ on 06/21/16 0815 Doxycycline Hyclate (Doxycycline Hyclate) 100 Mg Tablet, 100 MG PO BID Prescribed by: RAJ LUCERO on 01/27/22 1246 Prednisone (Prednisone) 50 Mg Tab, 50 MG PO DAILY Prescribed by: RAJ LUCERO on 01/27/22 1246 Tramadol HCl (Ultram) 50 Mg Tablet, 50 MG PO Q4H Prescribed by: NAVA STEWARD on 08/03/21 0942 Review of Systems Review of Systems Constitutional: see HPI EENTM: ear pain, nose congestion Respiratory: cough, phlegm, short of breath, wheezing Cardiovascular: chest pain (rib) Gastrointestinal: diarrhea Genitourinary: no symptoms reported Musculoskeletal: no symptoms reported Skin: no symptoms reported Psychiatric/Neurological: Headache All Other Systems Reviewed Negative Unless Noted: Yes Past Pfzwqto-Tqwxyk-Qqgynu Hx Patient Social History Tobacco Use?: No Smoking Status: Never a Smoker Smokeless Tobacco Frequency: Never a User Use of E-Cig and/or Vaping dev: No Use of E-Cig and/or Vaping Atul: Never a User Substance use?: No Alcohol Use?: No Pt feels they are or have been: No Immunizations Up To Date Tetanus Booster (TDap): Unknown First/Initial COVID19 Vaccinat: YES Second COVID19 Vaccination Benton: YES Third COVID19 Vaccination Date: YES 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 oz. 106.720820db; 31.00 BMI Method:Stated General Appearance: WD/WN, no apparent distress Eyes: Bilateral Eye Normal Inspection, Bilateral Eye PERRL, Bilateral Eye EOMI HEENT: TM abnormal (R), TM abnormal (L) (effusion, hyperemia) Neck: normal inspection Respiratory: wheezing (Coarse wet expiratory wheezes in all lung garcia throughout; no respiratory distress) Cardiovascular: regular rate, rhythm Neurologic/Psychiatric: alert, normal mood/affect, oriented x 3 Skin: normal color, warm/dry Progress/Results/Core Measures Suspected Sepsis SIRS Temperature: Pulse: 90 Respiratory Rate: 17 Blood Pressure 118 /86 Mean: 97 Results/Orders Lab Results Laboratory Tests Test 01/27/22 10:09 Range/Units Influenza Type A (RT-PCR) Not Detected Not Detecte Influenza Type B (RT-PCR) Not Detected Not Detecte SARS-CoV-2 RNA (RT-PCR) Not Detected Not Detecte My Orders Orders - ARJ LUCERO MD Covid 19 Inhouse Test (01/27/22 10:10) Influenza A And B By Pcr (01/27/22 10:10) Isolation Central Supply Req (01/27/22 10:10) Chest 1 View, Ap/Pa Only (01/27/22 10:52) Albuterol Pre-Mix Nebs (Rt) (Proventil (01/27/22 11:00) Albuterol/Ipra Inhalation Soln (Duoneb I (01/27/22 11:00) Prednisone Tablet (Deltasone Tablet) (01/27/22 11:00) Svn Small Volume Nebulizer (01/27/22 10:52) Svn Small Volume Nebulizer (01/27/22 10:52) Communication For Respiratory (01/27/22 10:52) Medications Given in ED Vital Signs/I&O 01/27/22 01/27/22 01/27/22 01/27/22 10:12 10:12 11:10 14:02 Temp 36.2 36.5 Pulse 90 79 Resp 17 17 B/P (MAP) 118/86 (97) 137/88 Pulse Ox 95 99 O2 Delivery Room Air Room Air Room Air Room Air Capillary Refill : Less Than 3 Seconds Blood Pressure Mean: 97 Progress Note #1: Time: 11:54 Progress Note Still Receiving his breathing treatment. Progress Note #2: Time: 12:40 Progress Note rechecked at this time - still wheezing but still feels better. Will start on bronchitis antibiots (as he is a smoker). Will watch him another 15-25min. Send out on steroids and albiuterol MDI as well. Progress Note #3: Time: 13:42 Progress Note Patient monitored on pulse oximetry after breathing treatment. Continues to have some expiratory wheezes at discharge but improved. No labored breathing or signs of respiratory distress. Pulse ox 94 to 95% on room air. Patient desires discharge at this time. Discharged home with strict return precautions. Antibiotics, inhaler and steroids. Diagnostic Imaging Diagonstic Imaging: Xray Plain Films/CT/US/NM/MRI: chest Comments [facility]. [place], [place] NAME: TAMRA FAIRBANKS [facility] REC#: [id number] PT STATUS: REG ER : 1975 PHYSICIAN: RAJ LUCERO MD ADMIT DATE: 01/27/22/ER Draft Date of Exam:01/27/22 CHEST 1 VIEW, AP/PA ONLY INDICATION: Cough and congestion. Frontal chest obtained at 10:52 a.m. compared to 06/21/2016. FINDINGS: Heart and mediastinal silhouette are normal in appearance. The lungs are clear. There is no pneumothorax or pleural fluid. IMPRESSION: Negative chest. Dictated on workstation # [id number] Dict: 01/27/22 1106 Trans: 01/27/22 1107 [id number] Interpreted by: CHASIDY ROWELL MD Electronically signed by: Departure Impression Primary Impression: Acute bronchitis Qualified Codes: J20.9 - Acute bronchitis, unspecified Disposition: HOME, SELF-CARE Condition: Improved Departure-Patient Inst. Decision time for Depature: 13:50 Referrals: [facility] [place] (PCP/Family) Primary Care Physician Patient Instructions: Acute Bronchitis, Adult (DC) Add. Discharge Instructions: Use your albuterol inhaler 2 puffs every 4-6 hours as needed for shortness of breath. The Symbicort inhaler should be used only 2 puffs twice a day. Take the prednisone 1 tablet daily for 5 days starting tomorrow. Antibiotics, doxycycline 100 mg twice a day for 10 days. You can use qjkg-xmb-zfurzjr cough medications such as Mucinex DM as directed on the packaging. Honey is also good for cough. Run a coolmist humidifier in your room at night when sleeping. Vicks vapor rub for congestion. Avoid smoking and tobacco smoke. Follow-up with your primary care provider at [facility] in 1 week. Come back to the emergency room for a reevaluation if you have any worsening shortness of breath, cough, high fever or any other emergent, concerning symptoms. Scripts Prednisone (Prednisone) 50 Mg Tab 50 MG PO DAILY for 5 Days, #1 TAB Prov: RAJ LUCERO MD 01/27/22 Albuterol Sulfate (Ventolin Hfa) 90 Mcg Hfa.aer.ad 2 PUFF INH Q6H PRN for SHORTNESS OF BREATH, #1 EA 1 PUFF = 90 MCG Prov: RAJ LUCERO MD 01/27/22 Doxycycline Hyclate (Doxycycline Hyclate) 100 Mg Tablet 100 MG PO BID for 10 Days, #20 TAB Prov: RAJ LUCERO MD 01/27/22 Work/School Note: Work Release Form Date Seen in the Emergency Department: Jan 27, 2022 Return to Work: Jan 28, 2022 Copy Copies To 1: MEENAKSHI PATINO KATHRYN M MD Jan 27, 2022 10:47
[2022-01-27] MEDS ORDERED: RT-ALBUTEROL SULF 2.5 MG/3 ML PRE-MIX VIAL INH ONE (11:00)
[2022-01-27] MEDS ORDERED: RT-ALBUTEROL/IPRATROPIUM 3 ML (DUONEB) VIAL INH ONE (11:00)
[2022-01-27] MEDS ORDERED: predniSONE 20 MG TAB PO ONE (11:00)
--- NOTE | 2022-01-27 11:08 | Diagnostic Imaging Report ---
INDICATION: Cough and congestion. Frontal chest obtained at 10:52 a.m. compared to 06/21/2016. FINDINGS: Heart and mediastinal silhouette are normal in appearance. The lungs are clear. There is no pneumothorax or pleural fluid. IMPRESSION: Negative chest. Dictated by: Dictated on workstation # [id number]
[2022-01-27] MEDS ORDERED: PRD50T PO (12:46)
[2022-01-27] MEDS ORDERED: ALBU8.5H6 INH (12:46)
[2022-01-27] MEDS ORDERED: DOXY100T2 PO (12:46)
[2022-01-27 14:02] VITALS: BP 137/88
== END 2022-01-27 14:02 | disposition home or self-care (01) ==
LOC: EDUNIT# 09:57 → ER 09:59
DX: J20.9 Acute bronchitis, unspecified (principal); Z20.822 Contact with and (suspected) exposure to COVID-19
CPT/HCPCS: 71045; 87636; 94640